=== PATIENT | male | born 1990 | race Caucasian/White ===

== ENCOUNTER 2021-04-20 18:46 | Emergency (ER) | payer BC ==
[~2021-04-20] VITALS: Ht 182.9 cm; Wt 120.2 kg
[2021-04-20 19:35] LABS: HEMOGLOBIN 15.9 gm/dl (14.0-17.5); RED BLOOD COUNT 5.08 M/UL (4.20-5.50); WHITE BLOOD COUNT 5.6 K/UL (4.5-11.0)
[2021-04-20 20:02] LABS: BUN/CREATININE RATIO 12 (0-10)
[2021-04-20] MEDS ORDERED: ASPIRIN CHEWABL81 MG PO (23:40)
[2021-04-20] MEDS ORDERED: DECADRON6 MG PO (23:40)
== END 2021-04-21 01:27 | disposition home or self-care (01) ==
LOC: ER1 18:46
PROVIDERS: Physician Assistant
DX: U07.1 COVID-19 (principal); Z23 Encounter for immunization; Z88.0 Allergy status to penicillin; I51.9 Heart disease, unspecified; F17.220 Nicotine dependence, chewing tobacco, uncomplicated
CPT/HCPCS: 71045; 80053; 82550; 82553; 83874; 83880; 84484; 85025; 85379; 85610; 85730; 93005; 99285; M0245; Q9967